=== PATIENT | female | born 1995 | race Caucasian/White ===

== ENCOUNTER 2019-10-09 16:45 | Emergency (ER) | payer BC ==
[~2019-10-09] VITALS: Ht 170.2 cm; Wt 59.5 kg
[2019-10-09 17:04] VITALS: BP 105/45
--- NOTE | 2019-10-09 17:31 | NUR ---
PT IS 24 YO FEMALE C/O FEELING BLOATED, FEELS LIKE IUD IS COMING OUT, PT HAS IUD PLACE 4 YEARS AGO, BEING EVALUATED BY PROVIDER
[2019-10-09] MEDS ORDERED: HYDROcodone/acetaminophen 5mg/325mg tablet PO ONE (17:45)
[2019-10-09] MEDS ORDERED: ondansetron 4mg rapidly disintigrating tab PO ONE (17:45)
[2019-10-09] MEDS ORDERED: LORazepam 1 MG tablet PO ONE (17:50)
[2019-10-09] MEDS ORDERED: CefTRIAXone 250MG IM Kit w/LIDOcaine IM ONE (18:35)
[2019-10-09] MEDS ORDERED: METR-159 PO (18:36)
== END 2019-10-09 18:55 | disposition home or self-care (01) ==
LOC: ER 16:46
DX: R10.2 Pelvic and perineal pain (principal); R10.84 Generalized abdominal pain; R11.0 Nausea; Z88.8 Allergy status to other drugs, medicaments and biological substances; Z79.2 Long term (current) use of antibiotics
CPT/HCPCS: 96372; 99284; J0696